=== PATIENT | female | born 2000 | race African-American/Black ===

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

== ENCOUNTER 2018-11-02 14:10 | Emergency (ER) | payer SELFPAY ==
[~2018-11-02] VITALS: Ht 154.9 cm; Wt 74.8 kg
[~2018-11-02 14:10] MED LIST: METR500T PO
[2018-11-02 14:27] VITALS: BP 137/67
[2018-11-02 14:39] LABS: BILIRUBIN,URINE NEGATIVE (NEG); CLARITY,URINE CLEAR; COLOR,URINE YELLOW; NITRITE,URINE NEGATIVE (NEG); PROTEIN,URINE NEGATIVE (NEG-TRACE)
[2018-11-02 14:57] LABS: SQUAMOUS EPITHELIAL CELL,UR MANY /LPF
[2018-11-02 14:58] LABS: BACTERIA,URINE MODERATE /HPF (0-FEW)
--- NOTE | 2018-11-02 16:24 | RAD ---
EXAM: Obstetrics sonogram. HISTORY: Pelvic pain. TECHNIQUE: Transabdominal and transvaginal sonographic imaging of the pelvis was performed. COMPARISON: None. FINDINGS: The uterus measures 9.4 x 5.4 x 6.2 cm. There is an intrauterine gestational sac with yolk sac. No pole is seen. The mean sac diameter is 9.9 mm, corresponding with a gestational age of 5 weeks and 5 days. The estimated due date is 06/30/2019. The gestational sac is normal in location and configuration. No subchronic hematoma is seen. The yolk sac is also normal in appearance. The ovaries are normal in size. There is a 1.4 cm complex left ovarian cyst, likely a corpus luteum cyst. There is trace free fluid within the posterior cul-de-sac. IMPRESSION: 1. Single intrauterine gestational sac with yolk sac. The mean sac diameter corresponds with a gestational age of 5 weeks and 5 days. No pole is seen at this early gestation and there is no beta-hCG level for correlation at the time of dictation. Short-term sonographic follow-up can be performed to confirm viability. 2. 1.7 cm suspected left corpus luteum cyst and trace nonspecific free fluid within the posterior cul-de-sac. Electronically signed by: Arpita Tovar MD (11/02/2018 4:22 PM) [place] [id number]
[2018-11-02] MEDS ORDERED: CEPH500T PO (16:45)
--- NOTE | 2018-11-02 16:46 | PHYS DOC ---
Past Medical History Past Medical History: No Pertinent History (DEBORAH RENO APRN) Past Surgical History: No Surgical History (DEBORAH RENO APRN) Alcohol Use: None Drug Use: None (DEBORAH RENO APRN) Adult General Chief Complaint Chief Complaint: PELVIC PAIN [place] [facility] [employer] [facility] HPI Patient is a 18 year old female who presents with vaginal discharge since yesterday. Patient states she does not remember her last menstrual cycle but she believes it was around the beginning of September so she is late for her cycle this month. She states she might be . Denies any nausea vomiting, denies any abdominal pain. Denies any vaginal bleeding. (DEBORAH RENO APRN) Review of Systems Review of Systems Constitutional: Denies fever or chills [] Eyes: Denies change in visual acuity, redness, or eye pain [] HENT: Denies nasal congestion or sore throat [] Respiratory: Denies cough or shortness of breath [] Cardiovascular: No additional information not addressed in HPI [] GI: Denies abdominal pain, nausea, vomiting, bloody stools or diarrhea [] : Reports vaginal discharge. Denies dysuria or hematuria [] Musculoskeletal: Denies back pain or joint pain [] Integument: Denies rash or skin lesions [] Neurologic: Denies headache, focal weakness or sensory changes [] All other systems were reviewed and found to be within normal limits, except as documented in this note. (BRITTONDEBORAH NAVA APRN) Allergies Allergies Allergies Coded Allergies Type Severity Reaction Last Updated Verified No Known Drug Allergies 12/21/17 No (TERENCE SALVADOR DO) Physical Exam Physical Exam Constitutional: Well developed, well nourished, no acute distress, non-toxic appearance. [] HENT: Normocephalic, atraumatic, bilateral external ears normal, oropharynx moist, no oral exudates, nose normal. [] Eyes: PERRLA, EOMI, conjunctiva normal, no discharge. [] Neck: Normal range of motion, no tenderness, supple, no stridor. [] Cardiovascular:Heart rate regular rhythm, no murmur [] Lungs & Thorax: Bilateral breath sounds clear to auscultation [] Abdomen: Bowel sounds normal, soft, no tenderness, no masses, no pulsatile masses. [] Pelvic exam External pelvic appears normal, cervix is visualized, closed, no CMT, no adnexal tenderness, trace amount of white discharge in the vaginal vault. Skin: Warm, dry, no erythema, no rash. [] Back: No tenderness, no CVA tenderness. [] Extremities: No tenderness, no cyanosis, no clubbing, ROM intact, no edema. [] Neurologic: Alert and oriented X 3, normal motor function, normal sensory function, no focal deficits noted. [] Psychologic: Affect normal, judgement normal, mood normal. [] (DEBORAH RENO APRN) Current Patient Data Vital Signs Vital Signs Date Time Temp Pulse Resp B/P (MAP) Pulse Ox O2 Delivery O2 Flow Rate FiO2 11/02/18 14:27 98.7 98 18 137/67 (90) 97 Room Air 98.7 (TERENCE SALVADOR DO) Lab Values Laboratory Tests Test 11/02/18 14:15 11/02/18 14:24 Urine Collection Type Unknown Urine Color Yellow Urine Clarity Clear Urine pH 6.0 Urine Specific [place] >=1.030 Urine Protein Negative mg/dL (NEG-TRACE) Urine Glucose (UA) Negative mg/dL (NEG) Urine Ketones (Stick) Trace mg/dL (NEG) Urine Blood Negative (NEG) Urine Nitrite Negative (NEG) Urine Bilirubin Negative (NEG) Urine Urobilinogen Dipstick 1.0 mg/dL (0.2 mg/dL) Urine Leukocyte Esterase Small (NEG) Urine RBC 1-2 /HPF (0-2) Urine WBC 11-20 /HPF (0-4) Urine Squamous Epithelial Cells Many /LPF Urine Bacteria Moderate /HPF (0-FEW) Urine Mucus Marked /LPF POC Urine HCG, Qualitative Hcg positive (Negative) Microbiology 11/02/18 Wet Prep - Final, Complete (TERENCE SALVADOR DO) EKG EKG [] (DEBORAH RENO APRN) Radiology/Procedures Radiology/Procedures [] (DEBORAH RENO APRN) Radiology/Procedures PROCEDURE: OB <14 WKS W/TV EXAM: Obstetrics sonogram. HISTORY: Pelvic pain. TECHNIQUE: Transabdominal and transvaginal sonographic imaging of the pelvis was performed. COMPARISON: None. FINDINGS: The uterus measures 9.4 x 5.4 x 6.2 cm. There is an intrauterine gestational sac with yolk sac. No pole is seen. The mean sac diameter is 9.9 mm, corresponding with a gestational age of 5 weeks and 5 days. The estimated due date is 06/30/2019. The gestational sac is normal in location and configuration. No subchronic hematoma is seen. The yolk sac is also normal in appearance. The ovaries are normal in size. There is a 1.4 cm complex left ovarian cyst, likely a corpus luteum cyst. There is trace free fluid within the posterior cul-de-sac. IMPRESSION: 1. Single intrauterine gestational sac with yolk sac. The mean sac diameter corresponds with a gestational age of 5 weeks and 5 days. No pole is seen at this early gestation and there is no beta-hCG level for correlation at the time of dictation. Short-term sonographic follow-up can be performed to confirm viability. 2. 1.7 cm suspected left corpus luteum cyst and trace nonspecific free fluid within the posterior cul-de-sac. Electronically signed by: Arpita Tovar MD (11/02/2018 4:22 PM) [facility] (TERENCE SALVADOR DO) Course & Med Decision Making Course & Med Decision Making Pertinent Labs and Imaging studies reviewed. (See chart for details) This is a 18-year-old female patient presenting to the ED today with vaginal discharge that began yesterday. Positive urine hCG. Wet prep is negative. UA noted for UTI, discharged with cephalexin. Provided an OB for follow-up. Ultrasound noted for IUP 5 weeks 5 days. This is her first . vitamins recommended (DEBORAH RENO APRN) Dragon Disclaimer Dragon Disclaimer This electronic medical record was generated, in whole or in part, using a voice recognition dictation system. (DEBORAH RENO APRN) Departure Departure Impression: Primary Impression: Additional Impression: UTI (urinary tract infection) Disposition: HOME, SELF-CARE Condition: STABLE Referrals: NO PCP (PCP) CHRIS MARTE Jr, MD follow up in 1-2 weeks Patient Instructions: ABCs of , - Urinary Tract Infection Additional Instructions: Your test was positive, congratulations!! We provided you an PRODUCT [employer] SALES PERSON, contact them tomorrow and set up an outpatient follow-up appointment. Scripts Cephalexin (CEPHALEXIN) 500 Mg Tablet 1 TAB PO BID, #14 TAB Prov: DEBORAH RENO APRN 11/02/18 Attending Signature Attending Signature I have reviewed the PA/INVESTOR RELATIONS COORDINATOR's note and plan of care. I was available for consultation as needed during the patient's visit in the emergency department. I agree with the clinical impression, plan, and disposition. (TERENCE SALVADOR DO) Problem Qualifiers Primary Impression: Weeks of gestation: less than 8 weeks Qualified Codes: Z3A.01 - Less than 8 weeks gestation of Additional Impression: UTI (urinary tract infection) Urinary tract infection type: site unspecified Hematuria presence: without hematuria Qualified Codes: N39.0 - Urinary tract infection, site not specified DEBORAH RENO APRN Nov 02, 2018 16:46 TERENCE SALVADOR DO Nov 03, 2018 00:37
[2018-11-04 14:12] LABS: GC PROBE Negative (Negative)
== END 2018-11-02 16:55 | disposition home or self-care (01) ==
LOC: ER 14:10
DX: O23.41 Unspecified infection of urinary tract in pregnancy, first trimester (principal); O34.81 Maternal care for other abnormalities of pelvic organs, first trimester; N83.202 Unspecified ovarian cyst, left side; Z3A.01 Less than 8 weeks gestation of pregnancy
CPT/HCPCS: 36415; 76801; 76817; 81001; 81025; 87086; 87491; 87591; 99285; Q0111

== ENCOUNTER 2019-05-25 18:13 | Observation (INO) | payer OTHER ==
[~2019-05-25 18:13] MED LIST changes: +CEPH500T PO
[2019-05-25] MEDS ORDERED: IV RINGERS,LACTATED 1000ML 1,000 ML IV SCH (18:56)
[2019-05-25 19:08] LABS: BILIRUBIN,URINE NEGATIVE (NEG); CLARITY,URINE CLOUDY; COLOR,URINE YELLOW; NITRITE,URINE NEGATIVE (NEG); PH,URINE 6.5; PROTEIN,URINE NEGATIVE (NEG-TRACE)
[2019-05-25 19:17] LABS: BARBITURATES NEG (NEG); BENZODIAZEPINES NEG (NEG); CANNABINOIDS NEG (NEG); COCAINE NEG (NEG); METHADONE NEG (NEG); OPIATES NEG (NEG); PHENCYCLIDINE NEG (NEG)
[2019-05-25 19:20] LABS: AMPHETAMINE/METHAMPHETAMINE NEG (NEG)
[2019-05-25 19:21] LABS: BACTERIA,URINE MANY /HPF (0-FEW); RBC,URINE RARE /HPF (0-2); SQUAMOUS EPITHELIAL CELL,UR MANY /LPF
== END 2019-05-25 20:00 | disposition home or self-care (01) ==
LOC: 3 SO LND 18:13
PROVIDERS: ADMIT Specialist; ATTEND Specialist
DX: Z34.83 Encounter for supervision of other normal pregnancy, third trimester (principal); Z3A.34 34 weeks gestation of pregnancy; Y08.89XA Assault by other specified means, initial encounter; Y93.89 Activity, other specified; Y92.89 Other specified places as the place of occurrence of the external cause; Y99.9 Unspecified external cause status
CPT/HCPCS: 80307; 81001; 87086; G0378; G0379; 59025

== ENCOUNTER 2021-10-09 20:32 | Emergency (ER) | payer OTHER ==
[~2021-10-09] VITALS: Ht 152.4 cm; Wt 74.8 kg
[~2021-10-09 20:32] MED LIST changes: +IBUP-1027 PO; +NIFE30TA2 PO
[2021-10-09 21:42] LABS: BACTERIA,URINE MODERATE /HPF (0-FEW); RBC,URINE OCC /HPF (0-2); WBC,URINE 20-40 /HPF (0-4)
[2021-10-09 21:46] LABS: BASO # 0.1 x10^3/uL (0.0-0.2); BASO % 1 % (0-3); EOS # 0.1 x10^3/uL (0.0-0.7); EOS % 1 % (0-3); HEMATOCRIT 38.6 % (36.0-47.0); HEMOGLOBIN 12.6 g/dL (12.0-15.5); LYMPH % 7 % (24-48); MEAN CORPUSCULAR HEMOGLOBIN 28 pg (25-35); MEAN CORPUSCULAR HGB CONC 33 g/dL (31-37); MEAN CORPUSCULAR VOLUME 86 fL (79-100); MONO # 0.9 x10^3/uL (0.0-1.1); MONO % 6 % (0-9); NEUT # 12.8 x10^3/uL (1.8-7.7); NEUT % 86 % (31-73); PLATELET COUNT 250 x10^3/uL (140-400); RED BLOOD COUNT 4.48 x10^6/uL (3.50-5.40); RED CELL DISTRIBUTION WIDTH 13.7 % (11.5-14.5); WHITE BLOOD COUNT 14.9 x10^3/uL (4.0-11.0)
[2021-10-09 21:55] LABS: CALCIUM 9.3 mg/dL (8.5-10.1); CREATININE 0.9 mg/dL (0.6-1.0); GFR 93.9; POTASSIUM 3.6 mmol/L (3.5-5.1)
[2021-10-09] MEDS ORDERED: IV NORMAL SALINE 1000ML BAG 1,000 ML IV ONE (22:00)
[2021-10-09] MEDS ORDERED: ONDANSETRON PF 4 MG/2 ML VIAL. IVP ONE (22:00)
[2021-10-09 22:01] LABS: ALBUMIN 4.2 g/dL (3.4-5.0); ALBUMIN/GLOBULIN RATIO 1.1 (1.0-1.7); TOTAL BILIRUBIN 0.6 mg/dL (0.2-1.0); TOTAL PROTEIN 7.9 g/dL (6.4-8.2)
[2021-10-09 22:01] LABS: U PREG PATIENT NEGATIVE (NEG)
[2021-10-09] MEDS ORDERED: KETOROLAC 30 MG/ML VIAL. ONE (22:12)
--- NOTE | 2021-10-09 22:14 | PHYS DOC ---
Past Medical History Past Medical History: No Pertinent History Past Surgical History: No Surgical History Smoking Status: Never Smoker Alcohol Use: None Drug Use: None General Adult EDM: Chief Complaint: ABDOMINAL PAIN HPI: HPI: Patient is a 21-year-old female who presents to the emergency department today for suprapubic pain with nausea/vomiting and dysuria. Patient reports that her last menstrual period was October 04. She reports that today she noticed a small gush of blood from her vagina earlier this afternoon but is no longer having vaginal bleeding. Patient denies any diarrhea, fevers. Review of Systems: Review of Systems: Constitutional: See HPI GI: See HPI : See HPI Heart Score: C/O Chest Pain: N/A Risk Factors: Risk Factors: DM, Current or recent (<one month) smoker, HTN, HLP, family history of CAD, obesity. Risk Scores: Score 0 - 3: 2.5% MACE over next 6 weeks - Discharge Home Score 4 - 6: 20.3% MACE over next 6 weeks - Admit for Clinical Observation Score 7 - 10: 72.7% MACE over next 6 weeks - Early Invasive Strategies Current Medications: Current Medications Medications (Trade) Dose Ordered Sig/Beverly Start Time Stop Time Status Last Admin Dose Admin Ketorolac Tromethamine (Toradol 30mg Vial) 30 mg 1X ONCE 10/09/21 22:15 10/09/21 22:16 UNV Ondansetron HCl (Zofran) 4 mg 1X ONCE 10/09/21 22:00 10/09/21 22:01 DC 10/09/21 21:48 4 MG Sodium Chloride 1,000 ml @ 1,000 mls/hr 1X ONCE 10/09/21 22:00 10/09/21 22:59 10/09/21 21:49 1,000 MLS/HR Allergies: Allergies: Allergies Coded Allergies Type Severity Reaction Last Updated Verified No Known Drug Allergies 12/21/17 No Physical Exam: PE: Constitutional: Well developed, well nourished, no acute distress, non-toxic appearance. [] HENT: Normocephalic, atraumatic, bilateral external ears normal, oropharynx moist, no oral exudates, nose normal. [] Eyes: PERRL, EOMI, conjunctiva normal, no discharge. [] Neck: Normal range of motion, no stridor Cardiovascular:Heart rate regular rhythm, no murmur [] Lungs & Thorax: Bilateral breath sounds clear to auscultation [] Abdomen: Bowel sounds normal, soft, suprapubic tenderness with palpation, no rebound tenderness, no guarding or abdominal rigidity, no masses, no pulsatile masses. [] Skin: Warm, dry, no erythema, no rash. [] Back: No tenderness, right CVA tenderness Extremities: No tenderness, no cyanosis, no clubbing, ROM intact, no edema. [] Neurologic: Alert and oriented X 3, normal motor function, normal sensory function, no focal deficits noted. [] Psychologic: Affect normal, judgement normal, mood normal. [] Current Patient Data: Labs: Laboratory Tests Test 10/09/21 21:11 10/09/21 21:40 Urine Collection Type Unknown Urine Color (Auto) Yellow Urine Turbidity Hazy Urine pH (Auto) 7.0 (<5.0-8.0) Urine Specific [place] 1.035 (1.000-1.030) Urine Protein (Auto) 70 mg/dL (Negative) Urine Glucose (Auto)(UA) Negative mg/dL (Negative) Urine Ketones (Auto) Negative mg/dL (Negative) Urine Blood (Auto) Moderate (Negative) Urine Nitrite Negative (Negative) Urine Bilirubin (Auto) Negative (Negative) Urine Urobilinogen (Auto) 2 mg/dL (Normal) Urine Leukocyte Esterase (Auto) Large (Negative) Urine RBC Occ /HPF (0-2) Urine WBC 20-40 /HPF (0-4) Urine Squamous Epithelial Cells Mod /LPF Urine Bacteria Moderate /HPF (0-FEW) Urine Mucus Marked /LPF Urine Test Negative (NEG) White Blood Count 14.9 x10^3/uL (4.0-11.0) H Red Blood Count 4.48 x10^6/uL (3.50-5.40) Hemoglobin 12.6 g/dL (12.0-15.5) Hematocrit 38.6 % (36.0-47.0) Mean Corpuscular Volume 86 fL (79-100) Mean Corpuscular Hemoglobin 28 pg (25-35) Mean Corpuscular Hemoglobin Concent 33 g/dL (31-37) Red Cell Distribution Width 13.7 % (11.5-14.5) Platelet Count 250 x10^3/uL (140-400) Neutrophils (%) (Auto) 86 % (31-73) H Lymphocytes (%) (Auto) 7 % (24-48) L Monocytes (%) (Auto) 6 % (0-9) Eosinophils (%) (Auto) 1 % (0-3) Basophils (%) (Auto) 1 % (0-3) Neutrophils # (Auto) 12.8 x10^3/uL (1.8-7.7) H Lymphocytes # (Auto) 1.0 x10^3/uL (1.0-4.8) Monocytes # (Auto) 0.9 x10^3/uL (0.0-1.1) Eosinophils # (Auto) 0.1 x10^3/uL (0.0-0.7) Basophils # (Auto) 0.1 x10^3/uL (0.0-0.2) Sodium Level 137 mmol/L (136-145) Potassium Level 3.6 mmol/L (3.5-5.1) Chloride Level 103 mmol/L (98-107) Carbon Dioxide Level 24 mmol/L (21-32) Anion Gap 10 (6-14) Blood Urea Nitrogen 10 mg/dL (7-20) Creatinine 0.9 mg/dL (0.6-1.0) Estimated GFR (Cockcroft-Gault) 93.9 BUN/Creatinine Ratio 11 (6-20) Glucose Level 94 mg/dL (70-99) Calcium Level 9.3 mg/dL (8.5-10.1) Total Bilirubin 0.6 mg/dL (0.2-1.0) Aspartate Amino Transferase (AST) 13 U/L (15-37) L Alanine Aminotransferase (ALT) 19 U/L (14-59) Alkaline Phosphatase 63 U/L (46-116) Total Protein 7.9 g/dL (6.4-8.2) Albumin 4.2 g/dL (3.4-5.0) Albumin/Globulin Ratio 1.1 (1.0-1.7) Lipase 58 U/L (73-393) L Laboratory Tests 10/09/21 21:40 Laboratory Tests 10/09/21 21:40 Vital Signs: Vital Signs Date Time Temp Pulse Resp B/P (MAP) Pulse Ox O2 Delivery O2 Flow Rate FiO2 10/09/21 20:55 98.5 92 18 139/83 (101) 99 Room Air 98.5 EKG: EKG: [] Radiology/Procedures: Radiology/Procedures: [] Course & Med Decision Making: Course & Med Decision Making Pertinent Labs and Imaging studies reviewed. (See chart for details) [] Patient presents to the emergency department for suprapubic pain with nausea, vomiting and dysuria. Her urine test was negative. Urinalysis does show urinary tract infection. Patient was noted to have mild leukocytosis, remainder of lab work was unremarkable negative lipase. Patient treated with IV fluids, nausea and pain medication. Patient p.o. challenged in the emergency department, able to tolerate oral intake. Patient reports improvement in her symptoms following treatment in the emergency department. Patient will be discharged home with an antibiotic for pyelonephritis as well as nausea medicati on and Pyridium. Patient's vital signs are stable. I discussed with patient all findings and diagnostic testing as well as the need to follow-up with PCP for further evaluation and treatment or return to the ER if any new or worsening symptoms. Strict return precautions were also discussed at length. Patient voiced understanding and agreement with the plan. Patient is hemodynamically stable at the time of disposition. Dragon Disclaimer: [employer] Disclaimer: This electronic medical record was generated, in whole or in part, using a voice recognition dictation system. Departure Departure Impression: Primary Impression: Pyelonephritis Disposition: 01 HOME / SELF CARE / HOMELESS Condition: GOOD Referrals: NO PCP (PCP) Patient Instructions: Pyelonephritis, Adult Additional Instructions: You were seen in the emergency department today for abdominal pain with nausea. You were noted to have a kidney infection which will be treated with an antibiotic. Please start and finish the antibiotic completely. Increase your fluids. Avoid bladder irritants like caffeine, sugary beverages or alcohol. You are also being discharged home with nausea medication that you can take as needed. You are being discharged home with Pyridium to help with your pain. Follow-up with your primary care provider tomorrow regarding your ER visit. Return to the emergency department if you develop worsening of your abdominal pain, high fevers refractory to treatment, intractable nausea or vomiting, blood in your stools or vomit or any new or worsening concerns. Scripts Phenazopyridine Hcl (PYRIDIUM) 200 Mg Tablet 1 TAB PO TID for urinary discomfort for 2 Days, #6 TAB 0 Refills Prov: CLARA TRAN APRN 10/09/21 Cefdinir (CEFDINIR) 300 Mg Capsule 1 CAP PO BID for 10 Days, #20 CAP 0 Refills Prov: CLARA TRAN APRN 10/09/21 Ondansetron (ONDANSETRON ODT) 4 Mg Tab.rapdis 1 TAB PO PRN Q6-8HRS for 7 Days, #28 TAB 0 Refills Prov: CLARA TRAN APRN 10/09/21 CLARA TRAN APRN Oct 09, 2021 22:14
[2021-10-09] MEDS ORDERED: KETOROLAC 30 MG/ML VIAL. IVP ONE (22:30)
[2021-10-09] MEDS ORDERED: PHEN-318 PO (22:39)
[2021-10-09] MEDS ORDERED: ONDA4TAB12 PO (22:39)
[2021-10-09] MEDS ORDERED: CEFD300C PO (22:39)
[2021-10-09 22:45] VITALS: BP 122/76
== END 2021-10-09 22:54 | disposition home or self-care (01) ==
LOC: ER 20:32
DX: N12 Tubulo-interstitial nephritis, not specified as acute or chronic (principal)
CPT/HCPCS: 36415; 80053; 81001; 81025; 83690; 85025; 87086; 96361; 96374; 96375; 99285; J1885; J2405; J7030

== ENCOUNTER 2021-10-29 11:34 | Emergency (ER) | payer OTHER ==
[~2021-10-29] VITALS: Ht 154.9 cm; Wt 73.8 kg
[~2021-10-29 11:34] MED LIST changes: +CEFD300C PO; +ONDA4TAB12 PO; +PHEN-318 PO
--- NOTE | 2021-10-29 12:19 | RAD ---
Exam: XR FOREARM_RIGHT 2 VIEWS History: Laceration. Rule out foreign body. Comparison: None. Findings: Osseous mineralization is normal. No acute fracture or dislocaton. Bandage material overlies the prox imal right forearm. No subcutaneous emphysema or radiopaque foreign body identified. Impression: 1. No acute osseous abnormality or radiopaque foreign body in the right forearm. Electronically signed by: Kel Bridges MD (10/29/2021 12:17 PM) [id number]
--- NOTE | 2021-10-29 12:23 | PHYS DOC ---
Past Medical History Past Medical History: No Pertinent History Past Surgical History: No Surgical History Smoking Status: Never Smoker Alcohol Use: None Drug Use: None General Adult EDM: Chief Complaint: LACERATION/AVULSION HPI: HPI: Patient is a 21 year old female who presents to the ER with a laceration to the right dorsal aspect of her forearm. Patient states that she excellently cut herself on a piece of glass that was broken. Patient does not know her tetanus status. Review of Systems: Review of Systems: Constitutional: Denies fever or chills. [] Eyes: Denies change in visual acuity. [] HENT: Denies nasal congestion or sore throat. [] Respiratory: Denies cough or shortness of breath. [] Cardiovascular: Denies chest pain or edema. [] GI: Denies abdominal pain, nausea, vomiting, bloody stools or diarrhea. [] : Denies dysuria. [] Musculoskeletal: Denies back pain or joint pain. [] Integument: Laceration to the right forearm denies rash. [] Neurologic: Denies headache, focal weakness or sensory changes. [] Endocrine: Denies polyuria or polydipsia. [] Lymphatic: Denies swollen glands. [] Psychiatric: Denies depression or anxiety. [] Heart Score: C/O Chest Pain: No Risk Factors: Risk Factors: DM, Current or recent (<one month) smoker, HTN, HLP, family history of CAD, obesity. Risk Scores: Score 0 - 3: 2.5% MACE over next 6 weeks - Discharge Home Score 4 - 6: 20.3% MACE over next 6 weeks - Admit for Clinical Observation Score 7 - 10: 72.7% MACE over next 6 weeks - Early Invasive Strategies Allergies: Allergies: Allergies Coded Allergies Type Severity Reaction Last Updated Verified No Known Drug Allergies 10/29/21 No Physical Exam: PE: Constitutional: Well developed, well nourished, no acute distress, non-toxic appearance. [] HENT: Normocephalic, atraumatic, bilateral external ears normal, oropharynx moist, no oral exudates, nose normal. [] Eyes: PERRLA, EOMI, conjunctiva normal, no discharge. [] Neck: Normal range of motion, no tenderness, supple, no stridor. [] Cardiovascular:Heart rate regular rhythm, no murmur [] Lungs & Thorax: Bilateral breath sounds clear to auscultation [] Abdomen: Bowel sounds normal, soft, no tenderness, no masses, no pulsatile masses. [] Skin: Laceration on to the dorsum of the right midforearm. Laceration measures approximately 4 cm. Bleeding is controlled warm, dry, no erythema, no rash. [] Back: No tenderness, no CVA tenderness. [] Extremities: No tenderness, no cyanosis, no clubbing, ROM intact, no edema. [] Neurologic: Alert and oriented X 3, normal motor function, normal sensory function, no focal deficits noted. [] Psychologic: Affect normal, judgement normal, mood normal. [] Current Patient Data: Labs: Laboratory Tests Test 10/29/21 12:00 POC Urine HCG, Qualitative Hcg negative (Negative) Vital Signs: Vital Signs Date Time Temp Pulse Resp B/P (MAP) Pulse Ox O2 Delivery O2 Flow Rate FiO2 10/29/21 11:40 98.4 75 18 130/99 (109) 99 Room Air 98.4 EKG: EKG: [] Radiology/Procedures: Radiology/Procedures: []Impression: 1. No acute osseous abnormality or radiopaque foreign body in the right forearm. Course & Med Decision Making: Course & Med Decision Making Pertinent Labs and Imaging studies reviewed. (See chart for details) [] Laceration was repaired and patient was instructed to return in 5 to 7 days to have sutures removed questions concerns were addressed return precautions were discussed Wilfridon Disclaimer: Alyssa Disclaimer: This electronic medical record was generated, in whole or in part, using a voice recognition dictation system. Laceration Repair Lac Repair Indication: [] Laceration Procedure: The patient was placed in the appropriate position and anesthesia around the right forearm with 1% lidocaine approximately 3 mL were given the area was then cleaned with normal saline. The laceration was closed with simple interrupted sutures with 4-0 Prolene. A total of 8 sutures were placed. The wound area was then dressed with nonstick and Randolph bandage Total repaired wound length: 4 cm Other Items: The patient tolerated the procedure well Complications: No complications Departure Departure Referrals: NO PCP (PCP) BENJAMÍN GARCIA DO Oct 29, 2021 12:23
[2021-10-29] MEDS ORDERED: LIDOCAINE 1% Multi-Dose 20 ML VIAL. INJ ONE (12:45)
[2021-10-29 13:13] VITALS: BP 136/81
[2021-10-29] MEDS ORDERED: DIPHTH,PERTUSS(ACELL),TET TOX 0.5 ML DISP.SYRIN. VAX IM ONE (14:00)
== END 2021-10-29 13:30 | disposition home or self-care (01) ==
LOC: ER 11:34
DX: S51.811A Laceration without foreign body of right forearm, initial encounter (principal); W25.XXXA Contact with sharp glass, initial encounter; Y93.89 Activity, other specified; Y92.89 Other specified places as the place of occurrence of the external cause; Y99.8 Other external cause status
CPT/HCPCS: 12002; 73090; 81025; 90471; 90715; 99284; J3490

== ENCOUNTER 2021-11-17 09:44 | Emergency (ER) | payer OTHER ==
[~2021-11-17] VITALS: Ht 154.9 cm; Wt 77.0 kg
[2021-11-17 10:01] VITALS: BP 147/87
--- NOTE | 2021-11-17 10:02 | PHYS DOC ---
Past Medical History Past Medical History: No Pertinent History Past Surgical History: No Surgical History Smoking Status: Never Smoker Alcohol Use: None Drug Use: None General Adult EDM: Chief Complaint: SUTURE/STAPLE REMOVAL HPI: HPI: Patient is a 21 year old female who presents for suture removal. She states the tails are "itchy," but otherwise has no complaints. Review of Systems: Review of Systems: ROS negative or noncontributory except as mentioned in HPI. Heart Score: C/O Chest Pain: No Allergies: Allergies: Allergies Coded Allergies Type Severity Reaction Last Updated Verified No Known Drug Allergies 10/29/21 No Physical Exam: PE: Constitutional: Well developed, well nourished, no acute distress, non-toxic appearance. HENT: Normocephalic, atraumatic, bilateral external ears normal, nose normal. Eyes: EOMI, conjunctiva normal, no discharge. Skin: Wound well healing without erythema or drainage. Skin otherwise warm, dry, no erythema, no rash. Extremities: No tenderness, no cyanosis, no clubbing, ROM intact, no edema. Neurologic: Alert and oriented x4, normal motor function, normal sensory function, no focal deficits noted. Course & Med Decision Making: Course & Med Decision Making Pertinent Labs and Imaging studies reviewed. (See chart for details) Roll20 Disclaimer: Roll20 Disclaimer: This electronic medical record was generated, in whole or in part, using a voice recognition dictation system. Suture/Staple Removal Indication: Suture removal Procedure: The patient was placed in the appropriate position and the 9 sutures were removed by VINNY Multani without difficulty. Other items: The patient tolerated the procedure very well. Complications: None. Departure Departure Impression: Primary Impression: Encounter for removal of sutures Disposition: 01 HOME / SELF CARE / HOMELESS Condition: IMPROVED Referrals: NO PCP (PCP) Patient Instructions: Wound Care, [id number] Additional Instructions: EMERGENCY DEPARTMENT GENERAL DISCHARGE INSTRUCTIONS Thank you for coming to [facility] Emergency Department (ED) today and trusting us with you care. We trust that you had a positive experience in our Emergency Department. If you wish to speak to the department management, you may call the director at . YOUR FOLLOW UP INSTRUCTIONS ARE FOLLOWS: 1. Follow up with your primary care doctor. If you do not have a primary doctor, please ask for a resource list of physicians or clinics that may be able to assist you with follow up care. 2. The emergency provider has interpreted your imaging studies, if any were ordered. The radiology supply chain specialist also reviewed them. If there is a change in the findings, you will be notified in 48 hours when at all possible. 3. If a lab test or culture has been done, your results will be reviewed and you will be notified if you need a change in treatment. 4. Follow instructions verbalized to you and refer to the printouts if needed. ADDITIONAL INSTRUCTIONS AND INFORMATION: 1. Your care today has been supervised by a physician who is specially trained in emergency care. Many problems require more than one evaluation for a complete diagnosis and treatment. We recommend that you schedule your follow up appointment as recommended to ensure complete treatment of you illness or injury. If you are unable to obtain follow up care and continue to have a problem, or if your condition worsens, we recommend that you return to the ED. 2. We are not able to safely determine your condition over the phone nor are we able to give sound medical advice over the phone. For these safety reasons, if you call for medical advice we will ask you to come to the ED for further evaluation. 3. If you have any questions regarding these discharge instructions please call the ED at . SAFETY INFORMATION: In the interest of safety, wellness, and injury prevention; we encourage you to wear your seat belt, if you smoke; quite smoking, and we encourage family to use a protective helmet for bicycling and other sporting events that present an increased risk for head injury. IF YOUR SYMPTOMS WORSEN OR NEW SYMPTOMS DEVELOP, OR YOU HAVE CONCERNS ABOUT YOUR CONDITION; OR IF YOUR CONDITION WORSENS WHILE YOU ARE WAITING FOR YOUR FOLLOW UP APPOINTMENT; EITHER CONTACT YOUR PRIMARY CARE DOCTOR, THE PHYSICIAN WHOSE NAME AND NUMBER YOU WERE GIVEN, OR RETURN TO THE ED IMMEDIATELY. CHE THOMAS November 17, 2021 10:02
== END 2021-11-17 10:24 | disposition home or self-care (01) ==
LOC: ER 09:44
DX: S51.811D Laceration without foreign body of right forearm, subsequent encounter (principal); X58.XXXD Exposure to other specified factors, subsequent encounter
CPT/HCPCS: 99281